=== PATIENT | female | born 1990 ===

== ENCOUNTER 2018-09-05 20:09 | Emergency (ER) | payer BC ==
[2018-09-05 20:25] VITALS: RESP 20; O2SAT 100
[2018-09-05] MEDS ORDERED: Sodium Chloride 0.9% 1,000 ML IV ONE (21:04)
[2018-09-05 21:18] LABS: HCG,QUALITATIVE URINE NEGATIVE (NEGATIVE); SQUAMOUS EPITHIAL 2 /hpf (0-5); URINE BACTERIA OCC (<OCC); URINE BILIRUBIN NEGATIVE (NEGATIVE); URINE BLOOD 2+ (NEGATIVE); URINE CLARITY Hazy (Clear); URINE COLOR Yellow (YELLOW); URINE GLUCOSE (UA) NORMAL (Normal); URINE LEUKOCYTE ESTERASE 3+ Leu/uL (Negative); URINE PROTEIN NEGATIVE (NEGATIVE); URINE UROBILINOGEN NORMAL mg/dL (0.2-1.0)
[2018-09-05 21:29] LABS: BARBITURATES, UR NEGATIVE (NEGATIVE); BENZODIAZEPINES, UR NEGATIVE (NEGATIVE); OPIATES, UR NEGATIVE (NEGATIVE); PHENCYCLIDINE, UR NEGATIVE (NEGATIVE)
[2018-09-05 21:35] LABS: BASO % 0.4 % (0.0-2.0); EOS % 0.5 % (0.0-4.0); HEMOGLOBIN 13.8 g/dL (11.0-16.0); LYMPH # 1.6 K/uL (1.0-4.3); LYMPH % 15.5 % (20.0-40.0); MEAN CELL VOLUME 89.9 fL (81.0-99.0); MEAN CORPUSCULAR HEMOGLOBIN 30.7 pg (27.0-31.0); MEAN CORPUSCULAR HGB CONC 34.2 g/dL (33.0-37.0); MEAN PLATELET VOLUME 8.3 fL (7.2-11.7); MONO # 0.7 K/uL (0.0-0.8); MONO % 6.5 % (0.0-10.0); NEUT # 7.8 K/uL (1.8-7.0); NEUT % 77.1 % (50.0-75.0); NRBC % 0.1 % (0.0-2.0); RBC 4.5 Mil/uL (3.80-5.20); RED CELL DISTRIBUTION WIDTH 13.6 % (11.5-14.5); WHITE BLOOD COUNT 10.1 K/uL (4.8-10.8)
[2018-09-05 21:42] LABS: ALB/GLOB RATIO 1.6 (1.0-2.1); ALBUMIN 5.2 g/dL (3.5-5.0); ALT/SGPT 28 U/L (9-52); AST/SGOT 23 U/L (14-36); BLOOD UREA NITROGEN 12 mg/dL (7-17); CALCIUM 9.5 mg/dl (8.6-10.4); GFR NON-AFRICAN AMERICAN > 60
--- NOTE | 2018-09-05 22:52 | C.PDOC ---
History Of Present Illness 28 year old female presents to the ED c/o polyuria and polydipsia. 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 Patient reports she drinks two 2 liter water bottles a day because she is thirsty. Patient denies PMHx of diabe fang, significant weight loss, weight gain, CP, SOB, headache, weakness, numbness. Time Seen by Provider: 09/05/18 20:39 Chief Complaint (Nursing): Headache History Per: Patient History/Exam Limitations: no limitations Onset/Duration Of Symptoms: Days Current Symptoms Are (Timing): Still Present Quality: "Pain" Recent travel outside of the [place]: No Additional History Per: Patient Past Medical History Reviewed: Historical Data, Nursing Documentation, Vital Signs Vital Signs: Last Vital Signs Temp 97.3 F L 09/05/18 20:20 Pulse 93 H 09/05/18 20:20 Resp 20 09/05/18 20:20 BP 95/69 L 09/05/18 20:20 Pulse Ox 100 09/05/18 20:20 - Medical History PMH: No Chronic Diseases Surgical History: No Surg Hx Family History: States: Unknown Family Hx - Social History Hx Alcohol Use: Yes Hx Substance Use: No - Immunization History Hx Tetanus Toxoid Vaccination: No Hx Influenza Vaccination: No Hx Pneumococcal Vaccination: No Review Of Systems Constitutional: Negative for: Fever, Chills Cardiovascular: Negative for: Chest Pain Respiratory: Negative for: Shortness of Breath Gastrointestinal: Negative for: Nausea, Vomiting, Abdominal Pain Skin: Negative for: Rash Neurological: Negative for: Weakness, Numbness Physical Exam - Physical Exam Appears: Non-toxic, No Acute Distress, Other (thin) Skin: Normal Color, Warm, Dry, Other (no tenting) Head: Atraumatic, Normacephalic Eye(s): bilateral: Normal Inspection Nose: No Discharge, Other (increased nasal congestion, erythema) Oral Mucosa: Moist Throat: Normal, No Erythema, No Exudate Neck: Normal ROM, Supple Chest: Symmetrical Cardiovascular: Rhythm Regular Respiratory: Normal Breath Sounds, No Rales, No Rhonchi, No Wheezing Gastrointestinal/Abdominal: Soft, No Tenderness, No Guarding, No Rebound, Other (scafoid, thin) Extremity: Normal ROM, No Tenderness, No Swelling Neurological/Psych: Oriented x3, Normal Speech, Normal Cognition Gait: Steady ED Course And Treatment - Laboratory Results Result Diagrams: 09/05/18 21:27 09/05/18 21:27 Lab Interpretation: Normal (ua neg, tox neg.) Urine POC: Negative ECG: Interpreted By Me ECG Rhythm: Sinus Rhythm ECG Interpretation: Normal Rate From EC (BPM) O2 Sat by Pulse Oximetry: 100 (ON RA) Pulse Ox Interpretation: Normal - Radiology CXR: Interpreted by Me CXR Interpretation: Yes: No Acute Disease Reevaluation Time: 22:52 Reassessment Condition: Improved Medical Decision Making Medical Decision Making: Plan: * EKG * Labs * Motrin 400 mg PO * IV fluids * UA normal A1C, normal labs NO susp of DM NO susp of DI normal urine concentration urine concentration lower range of normal ? psychogenic polydypsia pt drinking 2-4 liters of free water daily drinks only water, suggesting lower solute content counseled to avoid drinking excessive free water beyond those she drinks with meals consider hunger/anorexia as pt very thin for age/size pt using fluids as meal replacement? nasal passage inflammation prob sinus headaches "sinus" meds and Flonase educated at d/c pt presents note from outside hospital suggesting brain MRI Explained there are no findings suggestive of ACS nor indication for STAT MRI Pt appeared headache free @ eval and d/c. Certainly not suffering "worst headache of her life" More likely sinus headache Pt instructed to f/u as opt for elective MRI PRN Disposition Doctor Will See Patient In The: Office Counseled Patient/Family Regarding: Studies Performed, Diagnosis - Disposition Referrals: [facility] [Outside] [facility] [Outside] [facility] [Outside] [facility] [Outside] Disposition: HOME/ ROUTINE Disposition Time: 22:53 Condition: GOOD Additional Instructions: NO suspicion of Diabetes HGB A1C 5.1 (normal) Avoid excess water intake this may cause abnormal fluid and salt balances in your blood Tylenol/Ibuprofen "Sinus" as needed for probable sinus headaches Flonase 1 spray each nostril every 12 hours as needed decreases nasal passage inflammation [facility]. elective MRI PRN Instructions: Headache, Adult (DC) Forms: [facility] (Serbian) - Clinical Impression Clinical Impression: Headache, Polyuria, Polydipsia - Scribe Statement The provider has reviewed the documentation as recorded by the Scribe Darien Stafford All medical record entries made by the Scribe were at my direction and personally dictated by me. I have reviewed the chart and agree that the record accurately reflects my personal performance of the history, physical exam, medical decision making, and the department course for this patient. I have also personally directed, reviewed, and agree with the discharge instructions and disposition.
[2018-09-05 23:09] VITALS: BP 91/49; PULSE 88; TEMP 98.1
--- NOTE | 2018-09-06 08:48 | RAD ---
Date of service: 09/05/2018 PROCEDURE: CHEST RADIOGRAPH, 1 VIEW HISTORY: Diabetic COMPARISON: None available. FINDINGS: LUNGS: The lungs are well inflated and clear. PLEURA: No pneumothorax or pleural effusion. CARDIOVASCULAR: The heart is normal in size. No aortic atherosclerotic calcifications present. OSSEOUS STRUCTURES: Within normal limits for the patient's age. VISUALIZED UPPER ABDOMEN: Normal. OTHER FINDINGS: None. IMPRESSION: No active pulmonary disease.
--- NOTE | 2018-09-08 13:05 | CARD ---
APPROVED REPORT Date of service: 09/05/2018 EKG Measurement Heart [id number] <Conclusion> Normal sinus rhythm with sinus arrhythmia Biatrial enlargement Abnormal ECG
== END 2018-09-05 23:28 | disposition home or self-care (01) ==
LOC: C.ER 20:09
DX: R51 Headache (principal); R63.1 Polydipsia; R35.8 Other polyuria
CPT/HCPCS: 71045; 80053; 81001; 82948; 83036; 84703; 85025; 93005; 96360; 99284; G0480; J7030